=== PATIENT | male | born 1975 | race Caucasian/White ===

== ENCOUNTER 2020-07-03 22:15 | Emergency (ER) | payer BC ==
[~2020-07-03] VITALS: Ht 175.3 cm; Wt 84.1 kg
[~2020-07-03 22:15] MED LIST: NO HOME MEDICATIONS; NORCO 325 MG-51 TAB PO
[2020-07-03] MEDS ORDERED: AMOXICILLIN 8751 TAB PO (23:49)
[2020-07-04 00:05] VITALS: BP 123/83; PULSE 75; TEMP 97.8
== END 2020-07-04 00:05 | disposition home or self-care (01) ==
LOC: COL.ER 22:15
DX: S81.812A Laceration without foreign body, left lower leg, initial encounter (principal); F17.210 Nicotine dependence, cigarettes, uncomplicated; W26.8XXA Contact with other sharp object(s), not elsewhere classified, initial encounter